=== PATIENT | male | born 1965 | race Caucasian/White ===

== ENCOUNTER 2024-06-14 21:06 | Emergency (ER) | payer SELFPAY ==
[~2024-06-14] VITALS: Ht 180.3 cm; Wt 86.2 kg
[2024-06-14] MEDS ORDERED: augmentin PO (22:12)
[2024-06-14] MEDS: DIPH,PERTUSS(ACELL),TET VAC/PF 0.5 ML VIAL IM ONE (22:33)
[2024-06-14] MEDS: RABIES VACC, HUMAN DIPLOID/PF 2.5 UNIT ML IM SCH (22:34)
[2024-06-14 23:46] VITALS: BP 131/71; PULSE 71; RESP 20; O2SAT 97
== END 2024-06-14 23:58 | disposition home or self-care (01) ==
LOC: EDH 21:06
DX: S61.451A Open bite of right hand, initial encounter (principal); Z79.899 Other long term (current) drug therapy; W55.01XA Bitten by cat, initial encounter; Y93.89 Activity, other specified; Y92.89 Other specified places as the place of occurrence of the external cause; Y99.8 Other external cause status
CPT/HCPCS: 90471; 90472; 90675; 90715

== ENCOUNTER 2024-06-17 14:39 | Emergency (ER) | payer SELFPAY ==
[~2024-06-17] VITALS: Ht 180.3 cm; Wt 86.2 kg
[~2024-06-17 14:39] MED LIST: augmentin PO
[2024-06-17] MEDS: RABIES VACC, HUMAN DIPLOID/PF 2.5 UNIT ML IM SCH (15:41)
[2024-06-17 16:44] VITALS: BP 140/79; PULSE 60; RESP 16; O2SAT 98
== END 2024-06-17 16:45 | disposition home or self-care (01) ==
LOC: EDH 14:39
DX: M79.641 Pain in right hand (principal); Z98.890 Other specified postprocedural states; W55.01XD Bitten by cat, subsequent encounter
CPT/HCPCS: 90471; 90675; 99282